=== PATIENT | female | born 1970 | race Two or more races ===

== ENCOUNTER 2019-04-11 20:09 | Emergency (ER) | payer SELFPAY ==
[~2019-04-11] VITALS: Ht 162.6 cm; Wt 53.5 kg
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
[2019-04-11] MEDS ORDERED: IV NS 0.9% 1,000 ML BAG IV ONE (20:30)
--- NOTE | 2019-04-11 20:30 | NUR ---
ADDENDUM: Normal saline 1 liter (IV-WO) : start time: 2029 ; end time: 2129 : IV site: RAC 20 Port # 1
--- NOTE | 2019-04-11 20:31 | NUR ---
PHLEB AT BEDSIDE FOR LAB DRAW
[2019-04-11 20:44] LABS: BASOPHILS % (AUTO) 1.2 % (0.0-2.0); EOSINOPHILS % (AUTO) 2.2 % (0.0-6.0); HEMATOCRIT 37 % (33-45); LYMPHOCYTES % (AUTO) 57.2 % (20.0-44.0); MEAN CORPUSCULAR HGB CONC 33 g/dl (31.0-36.0); MEAN CORPUSCULAR VOLUME 91 fL (82-100); MONOCYTES # (AUTO) 0.3 /CMM (0.1-1.30); MONOCYTES % (AUTO) 8.9 % (2.0-12.0); NEUTROPHILS # (AUTO) 1.1 /CMM (1.8-8.9); NEUTROPHILS % (AUTO) 30.5 % (43.0-81.0); PLATELET COUNT (AUTO) 255 /CMM (150-450); RED BLOOD CELL COUNT(AUTO) 4.04 MIL/uL (4.0-5.2); WHITE BLOOD COUNT (AUTO) 3.4 K/uL (4.3-11.0)
[2019-04-11 20:52] LABS: ABG BASE EXCESS 0.5 mmol/L; ABG OXYGEN SATURATION 42.1 % (92.0-98.5); ABG PCO2 55.4 mmHg (35.0-45.0); ABG PH 7.316 (7.350-7.450); ABG PO2 31.6 mmHg (75.0-100.0); COHb 1.6 % (0.5-1.5); MetHb 0.1 % (0.0-1.5); O2Hb 41.4 % (94.0-97.0); SITE, ABG Right Radial; VENT MODE, BG VBG PR MD ORDER
[2019-04-11 20:52] LABS: CALCIUM, SERUM 8.4 mg/dL (8.5-10.1); CREATININE 0.6 mg/dL (0.6-1.3); POTASSIUM 3.2 mmol/L (3.5-5.1)
[2019-04-11 21:18] LABS: EOSINOPHILS % (MANUAL) 3 % (0-4); LYMPHOCYTES % (MANUAL) 53 % (16-48); MONOCYTES % (MANUAL) 10 % (0-11.0); NEUTROPHILS % (MANUAL) 34 (42-76)
--- NOTE | 2019-04-11 22:47 | NUR ---
BG 63. AWARE.
[2019-04-11 23:02] LABS: APPEARANCE,URINE Clear (CLEAR); BILIRUBIN,URINE Negative (NEGATIVE); BLOOD, URINE Moderate Ery/uL (NEGATIVE); COLOR,URINE Yellow (YELLOW); KETONES,URINE Negative (NEGATIVE); LEUKOCYTE ESTERASE ,URINE Negative (NEGATIVE); NITRITE, URINE Negative (NEGATIVE); PH,URINE 5.5 (5.0-8.0); PROTEIN,URINE Negative (NEGATIVE); UGLUCOSE Negative (NEGATIVE); UROBILINOGEN,URINE 0.2 EU/dL (0.2)
--- NOTE | 2019-04-11 23:10 | NUR ---
CALLED [employer] LEFT A VOICE MAIL.
[2019-04-11 23:37] LABS: BACTERIA,URINE None seen /HPF (None Seen); RBC,URINE 0-2 /HPF (0-2); SQUAMOUS EPITHELIAL CELL,UR Many /HPF (None Seen); WBC,URINE 0-2 /HPF (0-3)
[2019-04-11 23:38] LABS: MUCUS,URINE Few /LPF (None Seen); URINE AMORPHOUS URATE Few /HPF (None Seen)
[2019-04-12 00:04] VITALS: BP 122/82
--- NOTE | 2019-04-12 02:02 | NUR ---
Patient is resting comfortably in bed with eyes closed. Easily aroused. VSS.
--- NOTE | 2019-04-12 04:03 | NUR ---
IV removed. Catheter intact and site benign. Pressure and 4x4 applied to site. No bleeding noted.Patient discharged to home in stable condition. Written and verbal after care instructions given. Patient verbalizes understanding of instruction.
== END 2019-04-12 04:19 | disposition home or self-care (01) ==
LOC: ER 20:12
DX: E11.65 Type 2 diabetes mellitus with hyperglycemia (principal); Z76.5 Malingerer [conscious simulation]; Z59.0 Homelessness
CPT/HCPCS: 36415; 36600; 80048; 80305; 80307; 81001; 82803; 82962 ×3; 84703; 85025; 96360; 99284; J7030; 81000-TC; G0480

== ENCOUNTER 2019-09-18 19:18 | Emergency (ER) | payer SELFPAY ==
[~2019-09-18] VITALS: Ht 165.1 cm; Wt 53.5 kg
[2019-09-18 19:49] LABS: BASOPHILS % (AUTO) 0.5 % (0.0-2.0); EOSINOPHILS % (AUTO) 0.9 % (0.0-6.0); HEMATOCRIT 30 % (33-45); HEMOGLOBIN 9.6 g/dL (11.5-14.8); LYMPHOCYTES # (AUTO) 1.5 /CMM (0.8-4.8); MEAN CORPUSCULAR HGB CONC 32 g/dl (31.0-36.0); MEAN CORPUSCULAR VOLUME 92 fL (82-100); MONOCYTES # (AUTO) 0.4 /CMM (0.1-1.30); MONOCYTES % (AUTO) 11.9 % (2.0-12.0); NEUTROPHILS # (AUTO) 1.7 /CMM (1.8-8.9); NEUTROPHILS % (AUTO) 45.7 % (43.0-81.0); PLATELET COUNT (AUTO) 91 /CMM (150-450); RED BLOOD CELL COUNT(AUTO) 3.28 MIL/uL (4.0-5.2); WHITE BLOOD COUNT (AUTO) 3.7 K/uL (4.3-11.0)
[2019-09-18 19:58] LABS: EOSINOPHILS % (MANUAL) 1 % (0-4); LYMPHOCYTES % (MANUAL) 39 % (16-48); MONOCYTES % (MANUAL) 12 % (0-11.0); NEUTROPHILS % (MANUAL) 48 (42-76)
[2019-09-18 20:04] LABS: BILIRUBIN,DIRECT 0.2 mg/dL (0.0-0.2); BILIRUBIN,TOTAL 0.4 mg/dL (0.2-1.0); CALCIUM, SERUM 8.6 mg/dL (8.5-10.1); CREATININE 0.7 mg/dL (0.6-1.3); POTASSIUM 2.9 mmol/L (3.5-5.1)
[2019-09-18 20:05] LABS: ALBUMIN 3.5 g/dL (3.4-5.0); TOTAL PROTEIN, SERUM 6.7 g/dL (6.4-8.2)
[2019-09-18] MEDS ORDERED: ACETAMINOPHEN ES 500 MG TABLET ONE (20:07)
[2019-09-18] MEDS ORDERED: ONDANSETRON 4 MG TAB.RAPDIS ONE (20:07)
[2019-09-18] MEDS: ACETAMINOPHEN ES 500 MG TABLET PO ONE (20:12)
[2019-09-18] MEDS: ONDANSETRON 4 MG TAB.RAPDIS SL ONE (20:12)
[2019-09-18 20:13] LABS: APPEARANCE,URINE Cloudy (CLEAR); BILIRUBIN,URINE SMALL (NEGATIVE); BLOOD, URINE Large Ery/uL (NEGATIVE); COLOR,URINE Yellow (YELLOW); KETONES,URINE Trace (NEGATIVE); LEUKOCYTE ESTERASE ,URINE Moderate (NEGATIVE); NITRITE, URINE Positive (NEGATIVE); PROTEIN,URINE 100 mg/dl (NEGATIVE); UGLUCOSE Negative (NEGATIVE)
--- NOTE | 2019-09-18 20:15 | NUR ---
C/O ABD PAIN WITH N/V X2DAYS, VAGINAL BLEEDING X7DAYS "I HAVE BEEN BLEEDING FOR 7 DAYS NOW". ADMITS TO DRINKING ALCOHOL TODAY. PT AAOX3, VSS. DENIES CP, SOB, DIZZINESS, WEAKNESS @ THIS TIME. PT SEEN & EVAL'D BY DR. MEJIA. MEDICATED ORDERED, PT KRYS WELL. WILL CONT TO MONITOR.
[2019-09-18 20:18] LABS: BACTERIA,URINE 2+ /HPF (None Seen); SQUAMOUS EPITHELIAL CELL,UR Few /HPF (None Seen); WBC,URINE 21-50 /HPF (0-3)
[2019-09-18] MEDS ORDERED: CEPHALEXIN MONOHYDRATE 500 MG CAPSULE PO ONE (20:29)
[2019-09-18] MEDS ORDERED: POTASSIUM CHLORIDE 20 MEQ TAB.PRT.SR PO ONE (20:29)
[2019-09-18] MEDS: POTASSIUM CHLORIDE 20 MEQ TAB.PRT.SR PO ONE (20:45)
[2019-09-18] MEDS: CEPHALEXIN MONOHYDRATE 500 MG CAPSULE PO ONE (20:45)
[2019-09-18] MEDS ORDERED: LORAZEPAM 1 MG TABLET ONE (20:59)
[2019-09-18] MEDS: LORAZEPAM 1 MG TABLET PO ONE (21:08)
[2019-09-18 21:28] VITALS: BP 127/80
--- NOTE | 2019-09-18 21:28 | NUR ---
Patient discharged to home in stable condition. Written and verbal after care instructions given. Patient verbalizes understanding of instruction.
== END 2019-09-18 21:29 | disposition home or self-care (01) ==
LOC: ER 19:22
DX: E87.6 Hypokalemia (principal); N30.00 Acute cystitis without hematuria; R11.2 Nausea with vomiting, unspecified; E11.9 Type 2 diabetes mellitus without complications; I10 Essential (primary) hypertension; F10.10 Alcohol abuse, uncomplicated; F17.200 Nicotine dependence, unspecified, uncomplicated; Y90.9 Presence of alcohol in blood, level not specified; Z59.0 Homelessness
CPT/HCPCS: 36415; 80048; 80076; 81001; 83690; 85025; 87086; 99284; 99406; Q0162; 81000-TC; 87186-TC

== ENCOUNTER 2021-03-24 16:50 | Emergency (ER) | payer OTHER ==
[~2021-03-24] VITALS: Ht 165.1 cm; Wt 53.5 kg
[2021-03-24 17:29] LABS: BASOPHILS % (AUTO) 0.7 % (0.0-2.0); EOSINOPHILS % (AUTO) 0.8 % (0.0-6.0); HEMATOCRIT 41 % (33-45); HEMOGLOBIN 13.8 g/dL (11.5-14.8); LYMPHOCYTES # (AUTO) 2.7 /CMM (0.8-4.8); LYMPHOCYTES % (AUTO) 58.3 % (20.0-44.0); MEAN CORPUSCULAR HGB CONC 33 g/dl (31.0-36.0); MEAN CORPUSCULAR VOLUME 107 fL (82-100); MONOCYTES # (AUTO) 0.3 /CMM (0.1-1.30); MONOCYTES % (AUTO) 5.8 % (2.0-12.0); NEUTROPHILS # (AUTO) 1.6 /CMM (1.8-8.9); NEUTROPHILS % (AUTO) 34.4 % (43.0-81.0); PLATELET COUNT (AUTO) 90 /CMM (150-450); RED BLOOD CELL COUNT(AUTO) 3.86 MIL/uL (4.0-5.2); WHITE BLOOD COUNT (AUTO) 4.7 K/uL (4.3-11.0)
--- NOTE | 2021-03-24 17:31 | NUR ---
BIBRA TO ER BED 6. AAOX4. NOT IN RESP DISTRESS, BREATHING EVEN AND UNLABORED. AMBULATORY. BROUGHT IN FOR MID STERNAL CHEST PAIN RADIAITING TO L ARM 30 MIN WELDER REPAIR WHICH IS RESOLVED AFTER RECEIVING 2 SPRAYS OF NITRO AND ASPIRIN 325. PT IS ALSO COMPLAINING OF A LEFT LEG PAIN. PT REPORTS THAT SHE HAD HX OF DVT. MD WAS AT THE BEDSIDE FOR EVAL. ORDERS RECEIVED, NOTED AND CARRIED OUT. IV LINE ESTABLISHED ON L HAND 20G, BLOOD DRAWN AND GIVEN TO PHLEB AT BEDSIDE. PT ON MONITOR
[2021-03-24 17:44] LABS: CALCIUM, SERUM 8.7 mg/dL (8.5-10.1); CARBON DIOXIDE 26 mmol/L (21-32); CHLORIDE 102 mmol/L (98-107); CREATININE 0.6 mg/dL (0.6-1.3); GLUCOSE 114 mg/dL (74-106); POTASSIUM 3.4 mmol/L (3.5-5.1); SODIUM SERUM 141 mmol/L (136-145); UREA NITROGEN, BLOOD 13 mg/dL (7-18)
[2021-03-24 17:51] LABS: ALANINE AMINOTRANSFERASE 60 U/L (12-78); ALBUMIN 3.7 g/dL (3.4-5.0); ALCOHOL, BLOOD 375 mg/dL (0-0); ALKALINE PHOSPHATASE 146 U/L (46-116); ASPARTATE AMINOTRANSFERASE 279 U/L (15-37); BILIRUBIN,DIRECT 0.6 mg/dL (0.0-0.2); BILIRUBIN,TOTAL 0.9 mg/dL (0.2-1.0); TOTAL PROTEIN, SERUM 7.5 g/dL (6.4-8.2)
[2021-03-24 17:54] LABS: ACETAMINOPHEN < 2 ug/ml (10-30)
[2021-03-24 18:05] LABS: BILIRUBIN,URINE LARGE (NEGATIVE); COLOR,URINE YELLOW (YELLOW); LEUKOCYTE ESTERASE ,URINE Trace (NEGATIVE); NITRITE, URINE Negative (NEGATIVE); PROTEIN,URINE 100 mg/dl (NEGATIVE); UGLUCOSE Negative (NEGATIVE); UROBILINOGEN,URINE >=8.0 EU/dL (0.2)
[2021-03-24 18:10] LABS: BACTERIA,URINE Few /HPF (None Seen); RBC,URINE NONE SEEN /HPF (0-2); SQUAMOUS EPITHELIAL CELL,UR Few /HPF (None Seen)
[2021-03-24 18:18] LABS: EOSINOPHILS % (MANUAL) 1 % (0-4); LYMPHOCYTES % (MANUAL) 50 % (16-48); MONOCYTES % (MANUAL) 1 % (0-11.0); NEUTROPHILS % (MANUAL) 48 (42-76)
[2021-03-24] MEDS ORDERED: FOLIC ACID 1 MG TABLET PO SCH (19:00)
[2021-03-24] MEDS ORDERED: MAGNESIUM HYDROXIDE 30 ML UDC PO PRN (19:00)
[2021-03-24] MEDS ORDERED: LORAZEPAM 0.5 MG TABLET PO PRN (19:00)
[2021-03-24] MEDS ORDERED: HYDROCODONE/APAP 5/325MG TABLET PO PRN (19:00)
[2021-03-24] MEDS ORDERED: Z GUARD REMEDY 2 OZ OINT TP PRN (19:00)
[2021-03-24] MEDS ORDERED: MAG HYDROX/AL HYDROX/SIMETH 30 ML UDC PO PRN (19:00)
[2021-03-24] MEDS ORDERED: ONDANSETRON HCL/PF 4 MG/2 ML VIAL IVP PRN (19:00)
[2021-03-24] MEDS ORDERED: IV D5/0.45 NACL 1,000 ML IV PRN (19:00)
[2021-03-24] MEDS ORDERED: ZOLPIDEM TARTRATE 5 MG TABLET PO PRN (19:00)
[2021-03-24] MEDS ORDERED: ACETAMINOPHEN 325 MG TABLET PO PRN (19:00)
[2021-03-24] MEDS ORDERED: THIAMINE HCL 100 MG TABLET PO SCH (19:00)
--- NOTE | 2021-03-24 19:13 | NUR ---
lab at bedside for blood draw
[2021-03-24] MEDS ORDERED: FOLIC ACID 1 MG TABLET ONE (19:25)
[2021-03-24] MEDS ORDERED: THIAMINE HCL 100 MG TABLET ONE (19:25)
--- NOTE | 2021-03-24 20:33 | NUR ---
Patient does not wish to proceed with medical care recommended by Jake Johnson / Jake Najera. Patient given information related to possible complications, up to and including , which could occur as a result of leaving the hospital at this time. Patient verbalizes understanding of risks involved due to leaving against medical advice. Patient has signed AMA form.
[2021-03-24 20:35] VITALS: BP 123/78
[2021-03-25] MEDS ORDERED: PANTOPRAZOLE 40 MG TABLET.DR PO SCH (07:30)
== END 2021-03-24 20:39 | disposition home or self-care (01) ==
LOC: ER 16:53
DX: F10.129 Alcohol abuse with intoxication, unspecified (principal); F15.10 Other stimulant abuse, uncomplicated; R07.89 Other chest pain; I10 Essential (primary) hypertension; E11.9 Type 2 diabetes mellitus without complications; F17.200 Nicotine dependence, unspecified, uncomplicated; Z59.0 Homelessness; Y90.8 Blood alcohol level of 240 mg/100 ml or more
CPT/HCPCS: 36415; 71045-TC; 80048-TC; 80076-TC; 81001; 82962-TC; 84484-TC; 85025-TC; 87081-TC; 93307-TC; G0480

== ENCOUNTER 2022-06-12 20:44 | Emergency (ER) | payer OTHER ==
[~2022-06-12] VITALS: Ht 162.6 cm; Wt 49.9 kg
[2022-06-12 21:02] VITALS: BP 129/91
[2022-06-12] MEDS ORDERED: IBUPROFEN 600 MG TABLET PO ONE (22:00)
== END 2022-06-12 21:54 | disposition home or self-care (01) ==
LOC: ER 20:46
DX: S00.511A Abrasion of lip, initial encounter (principal); I10 Essential (primary) hypertension; E11.9 Type 2 diabetes mellitus without complications; F15.10 Other stimulant abuse, uncomplicated; Z59.00 Homelessness unspecified; X58.XXXA Exposure to other specified factors, initial encounter; Y93.89 Activity, other specified; Y92.89 Other specified places as the place of occurrence of the external cause; Y99.8 Other external cause status